=== PATIENT | male | born 1955 | race Caucasian/White ===

== ENCOUNTER 2016-10-06 01:19 | Inpatient (IN) | payer MEDICARE ==
--- NOTE | ~2016-10-06 | HP ---
Unit #: [id number] #: [id number] Patient: MAHIN UGARTE [id number] [place] [address] [id number] MR#: [id number] NAME: MAHIN UGARTE ROOM: 14 Age: 61 Sex: M Admission Date: 10/06/2016 : 1955 Attending Physician: Bobo Tse M.D. Admitting Physician: Bobo Tse M.D. Primary Care Physician: Primary Care Physician No HISTORY AND PHYSICAL HISTORY OF PRESENT ILLNESS Mahin is a 61 year old, admitted to [address] [place] [address] with depression verbalizing wanting to hurt himself. He is a poor historian so his history is taken from his chart. PAST MEDICAL HISTORY 1. MR. 2. High blood pressure. 3. Hypothyroidism. 4. History of anemia. 5. Recent fracture, left ankle. He is still in a walking boot. PAST SURGICAL HISTORY ALLERGIES No known drug allergies. SOCIAL HISTORY No history of cigarettes, alcohol, or illicit drug use. FAMILY HISTORY Medically not known. REVIEW OF SYSTEMS He does not answer any questions appropriately. There are no reports of nausea or vomiting, or diarrhea. He has had no cough or increased temperature. No complaints of or indications of chest pain. CURRENT MEDICATIONS 1. Risperdal 1 mg q.a.m., 2 mg q.h.s. 2. MiraLAX daily 3. Benadryl 50 mg q.h.s. 4. Depakote 500 mg b.i.d. 5. Paxil 30 mg q.h.s. 6. Depakote 250 mg daily 7. Vitamin D 2000 units daily 8. Inderal 20 mg t.i.d. 9. Claritin 10 mg daily 10. Synthroid 0.05 mg daily 11. Flonase nasal spray daily 12. Ferrous gluconate 324 mg daily 13. Os-hank 500 mg b.i.d. Unit #: [id number] #: [id number] Patient: MAHIN UGARTE 14. Milk of magnesia p.r.n. 15. Maalox p.r.n. 16. Tylenol p.r.n. PHYSICAL EXAMINATION GENERAL: Alert, thin, gentleman in no apparent distress. VITAL SIGNS: Blood pressure 122/72, heart rate 80, respirations 16, and temperature 98.6. WEIGHT: Unable to assess. SKIN: Warm and dry without rash. HEENT: Unable to assess. NECK: Unable to assess. HEART: Rate and rhythm is regular. LUNGS: Unable to assess. ABDOMEN: Unable to assess. : Unable to assess. EXTREMITIES: Moves all without focal deficit. Hard walking boot on the left lower extremity. He ambulates without difficulty. NEUROLOGICAL: Unable to assess. IMPRESSION Psychiatric admission. RECOMMENDATIONS Psychiatric, per psychiatrist. MEDICAL I see no contraindications to participating in facility's activities. MEDICAL PROGNOSIS Good. MEDICAL CONDITION Stable. Dictated by... Nena Bianchi PEusebio. for Paola Hernandez/analy TD: 10/10/2016 12:13 JOB #: [id number] HISTORY AND PHYSICAL Page 1 of 1 X Nena Bianchi X HISTORY AND PHYSICAL
--- NOTE | ~2016-10-06 | PN ---
Unit #: [id number] #: [id number] Patient: MAHIN UGARTE [id number] [facility] [address] [place] [address] [id number] MR#: [id number] NAME: MAHIN UGARTE ROOM: [facility] Age: 61 Sex: M Admission Date: 10/06/2016 : 1955 Attending Physician: Bobo Tse M.D. Admitting Physician: Bobo Tse M.D. Primary Care Physician: Primary Care Physician Judy WHITLOCK PROGRESS NOTES DATE 10/12/2016 DISCUSSION Mahin is a 61-year-old male seen on 10/12/2016. The patient interviewed, chart reviewed. Obtained information from nursing staff. The patient compliant and cooperative but behavior continues to be disorganized, disorganized thought process, guarded, paranoid but denied any hallucination, redirectable. Speech somewhat slurred, concrete thought process, guarded, paranoid, isolative, no aggression. Complete review of systems unremarkable. MENTAL STATUS EXAMINATION General appearance, the patient dressed casually. Attention span and concentration poor. Oriented to time, place and person. Mood and affect labile. Speech disorganized. Thought process guarded, circumstantial. Denied any suicidal or homicidal ideation but hallucination, disorganized thought process. Recent and remote memory poor. Insight and judgement poor. DIAGNOSES Schizophrenia chronic paranoid type. ASSESSMENT/PLAN Advise to continue with current medication with a plan to consider discharge this week if the patient continues to make progress. Dictated by... Paola Arciniega/jeovanny TD: 10/12/2016 22:31 JOB #: [id number] Unit #: [id number] #: [id number] Patient: MAHIN UGARTE PEAR[facility]ERT PROGRESS NOTES Page 1 of 1 X Bobo Tse MD PROGRESS NOTE
--- NOTE | ~2016-10-06 | PN ---
Unit #: [id number] #: [id number] Patient: BOGDAN UGARTE [id number] [facility] [address] [place] [address] [id number] I MR#: [id number] NAME: BOGDAN UGARTE ROOM: [facility] Age: 61 Sex: M Admission Date: 10/06/2016 : 1955 Attending Physician: Bobo Tse M.D. Admitting Physician: Bobo Tse M.D. Primary Care Physician: Primary Care Physician Judy WHITLOCK PROGRESS NOTES DATE 10/10/2016 DISCUSSION Mr. Stockton is a 61-year-old male seen on 10/10/2016. The patient interviewed, chart reviewed. Obtained information from nursing staff. The patient is able to sleep good tolerating medication fairly well. Reports medication is helping him. Vital signs 98.1, 87, 122/73. The patient feels somewhat guarded, isolative, paranoid. Speech somewhat slurred, no agitation. Reports making progress. Complete review of systems unremarkable. MENTAL STATUS EXAMINATION General appearance, the patient dressed casually in hospital attire. Attention span and concentration poor. Oriented to place and person. Mood and affect labile. Speech poor articulation. Thought process circumstantial. Association guarded, paranoid attending to internal stimuli but overall making progress. Recent and remote memory poor. Insight and judgement poor. DIAGNOSES Schizophrenia chronic paranoid type. ASSESSMENT/PLAN Advise to continue with current medication. If the patient continues to do well plan to consider discharge to residential program for the end of the week. Dictated by... Paola Arciniega/jeovanny TD: 10/11/2016 02:32 JOB #: [id number] Unit #: [id number] #: [id number] Patient: BOGDAN UGARTE KAMLESH PROGRESS NOTES Page 1 of 1 X Bobo Tse MD PROGRESS NOTE
--- NOTE | ~2016-10-06 | PN ---
Unit #: [id number] #: [id number] Patient: BOGDAN UGARTE [id number] [facility] [address] [place] [address] [id number] I MR#: [id number] NAME: BOGDAN UGARTE ROOM: [facility] Age: 61 Sex: M Admission Date: 10/06/2016 : 1955 Attending Physician: Bobo Tse M.D. Admitting Physician: Bobo Tse M.D. Primary Care Physician: Primary Care Physician Judy WHITLOCK PROGRESS NOTES DATE 10/11/2016 DISCUSSION Mr. Stockton is a 61-year-old male seen on 10/11/2016. The patient interviewed, chart reviewed. Obtained information from nursing staff. The patient's behavior continues to be disorganized, disorganized thought process, guarded, paranoid but pleasant and cooperative, compliant with medication making progress. The patient still isolative, guarded, flat affect. Complete review of systems unremarkable. MENTAL STATUS EXAMINATION General appearance, the patient dressed casually. Attention span and concentration fair to poor. Oriented to place and person. Mood and affect labile. Speech disorganized. Thought process disorganized, guarded, paranoid but denies any thoughts of harming self or others. Recent and remote memory poor. Insight and judgement poor. DIAGNOSES Schizophrenia chronic paranoid type. ASSESSMENT/PLAN Advise to continue with current medication and therapeutic protocol. If needed consider further adjustment of medication if needed. Dictated by... Paola Arciniega/jeovanny TD: 10/12/2016 02:40 JOB #: [id number] Unit #: [id number] #: [id number] Patient: BOGDAN UGARTE PEAROBERT PROGRESS NOTES Page 1 of 1 X Bobo Tse MD X PROGRESS NOTE
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
--- NOTE | ~2016-10-06 | PN ---
Unit #: [id number] #: [id number] Patient: MAHIN HONG [id number] [facility] [address] [place] [address] [id number] MR#: [id number] NAME: MAHIN HONG ROOM: [facility] Age: 61 Sex: M Admission Date: 10/06/2016 : 1955 Attending Physician: Bobo Tse M.D. Admitting Physician: Bobo Tse M.D. Primary Care Physician: Primary Care Physician Judy WHITLOCK PROGRESS NOTES DATE OF SERVICE 10/09/2016 DISCUSSION Mr. Mahin Hong is a 61-year-old male seen on 10/09/2016. Patient interviewed, chart reviewed, I obtained information from nursing staff. Patient continues to be isolative, guarded, flat affect, tolerating medication fairly well, making progress. Patient's speech was somewhat slurred, thought process concrete. Patient showing some improvement, improving direction with staff and peers but still isolative, guarded, flat affect. Reports hallucinations are improving, getting better. COMPLETE REVIEW OF SYSTEMS Unremarkable. MENTAL STATUS EXAMINATION GENERAL APPEARANCE: Patient dressed casually. ATTENTION SPAN AND CONCENTRATION: Poor. Oriented in place and person. MOOD AND AFFECT: Labile. SPEECH: Slow. THOUGHT PROCESS: Circumstantial. Patient guarded, paranoid. Denied any suicidal or homicidal ideation but mood lability, isolative, seclusive. RECENT AND REMOTE MEMORY: Poor. INSIGHT AND JUDGMENT: Poor. DIAGNOSIS Schizophrenia, chronic, paranoid type ASSESSMENT/PLAN Advised to continue with current medication and therapeutic protocol. If needed, consider further adjustment in medication. Dictated by... Paola Arciniega/rupal TD: 10/09/2016 23:43 JOB #: [id number] Unit #: [id number] #: [id number] Patient: MAHIN HONG PROGRESS NOTES Page 1 of 1 X Bobo Tse MD PROGRESS NOTE
--- NOTE | ~2016-10-06 | DS ---
Unit #: [id number] #: [id number] Patient: BOGDAN UGARTE [id number] [place] [address] [id number] I MR#: [id number] NAME: BOGDAN UGARTE ROOM: 14 Age: 61 Sex: M Admission Date: 10/06/2016 : 1955 Discharge Date: 10/13/2016 Attending Physician: Bobo Tse M.D. Primary Care Physician: Primary Care Physician No DISCHARGE SUMMARY REASON FOR ADMISSION Psychosis, depression. DIAGNOSTIC STUDIES LABORATORY DATA: Unremarkable. HOSPITAL COURSE The patient was admitted to inpatient unit on October 06 and discharged on 10/13/2016. The patient was treated on the inpatient unit with group therapy, individual therapy, medication management. The patient responded well with the above modalities of treatment. Mostly seclusive, isolative during his stay. The patient was stabilized with the above modalities of treatment and medication. Subsequently the patient was discharged to [place], [place], with outpatient followup. DISCHARGE MEDICATIONS 1. Cogentin 2 mg daily for EPS symptoms. 2. Synthroid 0.05 mg daily for hypothyroidism. 3. Claritin 10 mg daily for allergies. 4. Inderal 20 mg 3 times a day for tremors. 5. Vitamin D 2000 units daily supplement. 6. Paxil 30 mg daily for depression. 7. Risperdal 3 mg at bedtime for psychosis. 8. Depakote 500 mg twice daily. 9. Depakote 250 mg at 1500 hours for mood stabilization. 10. Benadryl 50 mg at bedtime for EPS symptom. 11. Vitamin D 500 mg twice daily supplement. 12. Fergon 324 mg daily supplement. 13. Flonase 2 sprays once daily, allergies. 14. Vitamin B12, 1000 mcg every 5-day supplement. 15. Haloperidol 20 mg b.i.d. The patient was discharged on 2 antipsychotics as the patient did not respond with one. Plan to taper. The patient was tried on Risperdal and Haldol and Thorazine in the past. The patient is not a candidate for Clozaril due to the patient's noncompliance. Plan to taper off one of the antipsychotics over the next 6 months if possible. DISCHARGE DIAGNOSES PSYCHIATRIC: Schizophrenia, chronic, paranoid type, F20.0 Mood disorder not otherwise specified, F32.9. SECONDARY: Deferred. MEDICAL: History of hypertension, hypothyroidism, bladder problem, broken foot, left. Unit #: [id number] #: [id number] Patient: BOGDAN UGARTE STRESSORS: Psychosocial stressor. FOLLOWUP CARE The patient to follow up in outpatient clinic as per social media manager. CONDITION ON DISCHARGE The patient pleasant, cooperative. Denied any psychotic symptom or any suicidal ideation. PROGNOSIS Guarded. DIET AND ACTIVITY As tolerated. Dictated by... Paola Arciniega/buster TD: 10/14/2016 11:51 JOB #: [id number] DISCHARGE SUMMARY Page 1 of 1 X Bobo Tse MD X DISCHARGE SUMMARY
--- NOTE | ~2016-10-06 | PN ---
Unit #: [id number] #: [id number] Patient: BOGDAN UGARTE [id number] [facility] [address] [place] [address] [id number] MR#: [id number] NAME: BOGDAN UGARTE ROOM: [facility] Age: 61 Sex: M Admission Date: 10/06/2016 : 1955 Attending Physician: Bobo Tse M.D. Admitting Physician: Bobo Tse M.D. Primary Care Physician: Primary Care Physician Judy CADET NOTES DATE OF SERVICE: 10/07/2016 DISCUSSION Mr. Stockton is a 61-year-old male, seen on 10/07/2016. The patient continues to be seclusive, isolative, guarded, paranoid, but compliant with medication. Vital signs, temperature 98.0, pulse 82, respirations, 14, blood pressure 119/79. The patient continues to be paranoid, impulsive, withdrawn, flat, sad, depressed, wearing a boot, tolerating medication fairly well. REVIEW OF SYSTEMS Complete review of systems is unremarkable. MENTAL STATUS EXAMINATION General appearance, the patient dressed casually. Attention span and concentration, poor. Oriented in place and person. Mood and affect, sad and dysphoric. Speech, monotone. Thought process, disorganized, guarded, paranoid, delusional. Denied any suicidal ideation. Recent and remote memory, poor. Insight and judgment, poor. DIAGNOSIS Schizophrenia, chronic, paranoid type. ASSESSMENT AND PLAN Advised to continue with current medication and therapeutic protocol. If needed, consider further adjustment of medication. Dictated by... Paola Arciniega/tanya TD: 10/09/2016 03:49 JOB #: [id number] Unit #: [id number] #: [id number] Patient: BOGDAN UGARTE [facility] PROGRESS NOTES Page 1 of 1 X Bobo Tse MD PROGRESS NOTE
--- NOTE | ~2016-10-06 | PN ---
Unit #: [id number] #: [id number] Patient: BOGDAN UGARTE [id number] [facility] [address] [place] [address] [id number] I MR#: [id number] NAME: BOGDAN UGARTE ROOM: [facility] Age: 61 Sex: M Admission Date: 10/06/2016 : 1955 Attending Physician: Bobo Tse M.D. Admitting Physician: Bobo Tse M.D. Primary Care Physician: Primary Care Physician Judy HICKSCE PROGRESS NOTES DATE 10/08/2016 DISCUSSION Mr. Stockton is a 61-year-old male, seen on 10/08/2016. The patient interviewed, chart reviewed, and obtained information from the nursing staff. The patient was compliant and cooperative. Mood sad and dysphoric, flat affect, and guarded. Vital signs, 97.6, 88, 14, and 117/88. The patient continues to be isolative, guarded, attending to internal stimuli, paranoid but making progress, and tolerating medication fairly well. No side effects from medications. REVIEW OF SYSTEMS Complete review of systems unremarkable. MENTAL STATUS EXAMINATION General appearance: Patient dressed casually. Attention span and concentration, poor. Oriented to place and person. Mood and affect, labile. Speech, circumstantial. Thought process, circumstantial. Association, guarded, paranoid, attending to internal stimuli but denied any thoughts of harming self or others. Recent and remote memory, poor. Insight and judgment, poor. DIAGNOSIS Schizophrenia, paranoid type. ASSESSMENT/PLAN Advised to continue with the current medication combination of haloperidol, Risperdal, MiraLAX, Paxil, and Depakote, and if needed consider further adjustment of medication. Dictated by... Paola Arciniega/analy TD: 10/09/2016 06:07 Unit #: [id number] #: [id number] Patient: BOGDAN UGARTE JOB #: [id number] [facility] PROGRESS NOTES Page 1 of 1 X Bobo Tse MD X PROGRESS NOTE
[2016-10-11 09:50] LABS: ALBUMIN SERUM 3.9 g/dL (3.5-5.0); BILIRUBIN,TOTAL 0.3 mg/dL (0.2-2.0); BUN/CREATININE RATIO 12.85; CALCIUM SERUM 8.8 mg/dL (8.4-10.2); CREATININE SERUM 0.7 mg/dL (0.6-1.4); GLOM FILT RATE Estimated 103.3 mL/min (>60); POTASSIUM 4.1 mmol/L (3.5-5.1); PROTEIN TOTAL SERUM 6.6 g/dL (6.0-8.3)
== END 2016-10-13 09:25 | DRG 885 ==
LOC: P1S 01:19
PROVIDERS: Psychiatry & Neurology Psychiatry
DX: F20.0 Paranoid schizophrenia (principal); F39 Unspecified mood [affective] disorder; I10 Essential (primary) hypertension; E03.9 Hypothyroidism, unspecified; S92.902D Unspecified fracture of left foot, subsequent encounter for fracture with routine healing
CPT/HCPCS: 80053; 80164; 82140; J3420